=== PATIENT | male | born 1925 | race Caucasian/White ===

== ENCOUNTER 2017-04-07 11:23 | Emergency (ER) | payer OTHER, MEDICARE ==
[~2017-04-07] VITALS: Ht 167.6 cm; Wt 65.8 kg
[~2017-04-07 11:23] MED LIST: ACCUPRIL5 MG PO; ASPIR 8181 MG PO; ASPIRIN325; COLACE100 MG; FISH OIL500 MG; GAVISCON LIQUI355 ML PO; GLUCOSAMINE H1500 MG PO; LIPITOR 10 MG10 M1; MULTIVITAMINS1 EAC7; OCUVITE TABLET1 EAC1 PO; QUINU10 PD; QUINU5 PD PO; TUMS E.S.750 MG PO; VITAMIN D1000 UNI1 PO
[2017-04-07] MEDS ORDERED: AUGMENTIN 875875 MG PO (12:39)
== END 2017-04-07 13:28 | disposition home or self-care (01) ==
LOC: ER 11:23
DX: S61.253A Open bite of left middle finger without damage to nail, initial encounter (principal); S61.252A Open bite of right middle finger without damage to nail, initial encounter; Z98.890 Other specified postprocedural states; W59.11XA Bitten by nonvenomous snake, initial encounter; Y93.89 Activity, other specified; Y92.89 Other specified places as the place of occurrence of the external cause; Y99.8 Other external cause status